=== PATIENT | female | born 1980 | race Caucasian/White ===

== ENCOUNTER 2020-10-02 05:30 | Day surgery (SDC) | payer MEDICAID, OTHER ==
[2020-09-28 12:49] LABS: HEMATOCRIT 40.4 % (36.0-47.0); HEMOGLOBIN 13.5 g/dL (12.0-15.5); MEAN CORPUSCULAR HEMOGLOBIN 28.7 pg (27.0-33.4); MEAN CORPUSCULAR HGB CONC 33.4 g/dL (32.0-36.0); MEAN CORPUSCULAR VOLUME 86 fl (80-97); PLATELET COUNT 364 10^3/uL (150-450); RED CELL DISTRIBUTION WIDTH 14.3 % (11.5-14.0); WHITE BLOOD COUNT 11.2 10^3/uL (4.0-10.5)
[2020-09-28 12:59] LABS: APPEARANCE,URINE CLEAR; BILIRUBIN,URINE NEGATIVE (NEGATIVE); COLOR,URINE YELLOW; GLUCOSE, URINE NEGATIVE (NEGATIVE); KETONES,URINE NEGATIVE (NEGATIVE); LEUKOCYTE ESTERASE,URINE NEGATIVE (NEGATIVE); NITRITE,URINE NEGATIVE (NEGATIVE); PROTEIN,URINE NEGATIVE (NEGATIVE); URINE SPECIFIC GRAVITY 1.025; UROBILINOGEN,URINE NEGATIVE mg/dL (<2.0)
[~2020-10-02 05:30] MED LIST: LACTATED RINGERS 1000 ML IV PRN; LIDOCAINE 0.5% INJ-PF (5 MG/ML) 50 ML SDV SUBCUT PRN; NORMAL SALINE 1000 ML (RENAL PATIENTS) IV PRN
[2020-10-02] MEDS ORDERED: PROPOFOL INJ 200 MG/20 ML VIAL IV ONE (06:54)
[2020-10-02] MEDS ORDERED: ONDANSETRON HCL INJ/PF 4 MG/2 ML SDV ONE (06:54)
[2020-10-02] MEDS ORDERED: FENTANYL CITRATE INJ/PF 100 MCG/2 ML AMPUL ONE (06:54)
[2020-10-02] MEDS ORDERED: MIDAZOLAM 2 MG/2 ML INJ ONE (06:54)
[2020-10-02] MEDS ORDERED: LIDOCAINE 2% INJ-PF (20 MG/ML) 10 ML AMPUL ONE (07:00)
[2020-10-02] MEDS ORDERED: OXYCODONE-ACETAMINOPHEN 5-325 MG TABLET PO PRN ×2 (07:51)
[2020-10-02] MEDS ORDERED: PROMETHAZINE HCL INJ 25 MG/1 ML VIAL IV PRN (07:51)
[2020-10-02] MEDS ORDERED: MORPHINE SULFATE 10 MG/ML INJ IV PRN (07:51)
[2020-10-02] MEDS ORDERED: ONDANSETRON HCL INJ/PF 4 MG/2 ML SDV IV PRN (07:51)
[2020-10-02] MEDS ORDERED: FENTANYL CITRATE INJ/PF 100 MCG/2 ML AMPUL IV PRN ×3 (07:51)
[2020-10-02] MEDS ORDERED: MEPERIDINE HCL/PF INJ 25 MG/1 ML DISP.SYRIN IV PRN (07:51)
[2020-10-02] MEDS ORDERED: DIPHENHYDRAMINE HCL 50 MG/ML VIAL IV PRN (07:51)
[2020-10-02] MEDS ORDERED: KETOROLAC TROMETHAMINE INJ/PF 30 MG/1 ML SDV IV PRN (08:01)
[2020-10-02] MEDS ORDERED: IBUPROFEN 800 MG TABLET PO PRN (08:01)
[2020-10-02] MEDS ORDERED: RINGERS SOLUTION,LACTATED 1,000 ML IV PRN (08:01)
--- NOTE | 2020-10-02 08:08 | Operative Report ---
Operative Report DATE OF SURGERY: 10/02/20 PREOPERATIVE DIAGNOSIS: Heavy menses POSTOPERATIVE DIAGNOSIS: Same OPERATION: D&C hysteroscopy endometrial ablation SURGEON: RAI AZUL ANESTHESIA: GA TISSUE REMOVED OR ALTERED: Cervical and endometrial curettings COMPLICATIONS: None ESTIMATED BLOOD LOSS: Minimal INTRAOPERATIVE FINDINGS: Uterus sounded to 8 cm with a uterine cavity length of 4 cm and a width of 3.3 cm PROCEDURE: Patient was taken the OR and placed in supine position. Anesthesia was induced. She was placed in a dorsolithotomy position using Alexander stirrups. Her perineum and vagina were prepared and draped in a sterile fashion. Her bladder was emptied with a red rubber catheter. A weighted speculum was placed in the anterior lip cervix was grasped with a tenaculum. The uterus sounded to 8 cm. The cervix was gently dilated. Hysteroscopy was performed and showed a mostly empty uterine cavity with some endometrial tissue. Cavity length was 4 cm and the width was 3.3 cm. Both endocervical and endometrial curettings were obtained. Next the NovaSure device was placed tested and fired without incident. Repeat hysteroscopy showed a very well ablated uterine cavity. All instruments were then removed. She was brought out of anesthesia and taken recovery in stable condition.
--- NOTE | 2020-10-02 08:11 | Discharge Summary ---
Discharge Summary (SDC) - Discharge Final Diagnosis: Heavy menses Date of Surgery: 10/02/20 Discharge Date: 10/02/20 Condition: Good Prescriptions: Ibuprofen [Motrin 800 mg Tablet] 800 mg PO Q8H PRN #30 tablet PRN Reason: Tizanidine HCl [Zanaflex 4 mg Tablet] 4 mg PO BID #10 tablet Referrals: ELIJAH GUZMAN PA-C [Primary Care Provider] -
[2020-10-02] MEDS ORDERED: TIZANIDINE HCL 4 MG TABLET PO SCH (10:00)
[2020-10-02 10:23] VITALS: BP 189/93
[2020-10-02] MEDS ORDERED: KETOROLAC TROMETHAMINE 60 MG/2 ML SDV ONE (11:44)
== END 2020-10-02 09:50 | disposition home or self-care (01) ==
LOC: OROUT 05:30
PROVIDERS: ATTEND Obstetrics & Gynecology
DX: N92.0 Excessive and frequent menstruation with regular cycle (principal); N93.8 Other specified abnormal uterine and vaginal bleeding; I10 Essential (primary) hypertension; E04.2 Nontoxic multinodular goiter; D64.9 Anemia, unspecified; F17.210 Nicotine dependence, cigarettes, uncomplicated; F41.1 Generalized anxiety disorder; M19.90 Unspecified osteoarthritis, unspecified site; Z79.899 Other long term (current) drug therapy; Z79.890 Hormone replacement therapy; Z90.49 Acquired absence of other specified parts of digestive tract; Z01.812 Encounter for preprocedural laboratory examination; Z20.822 Contact with and (suspected) exposure to COVID-19
CPT/HCPCS: 36415; 85027; 87635; 81025; 81001; 88305 ×2; 58563; J3490 ×2; J1885; J2405; J2704; C9803; J2250; J3010